=== PATIENT | male | born 1975 | race African-American/Black ===

== ENCOUNTER → 2016-08-21 | Outpatient (CLI) | payer OTHER ==
--- NOTE | 2016-08-21 10:42 | REP ---
Chest two views HISTORY: Left rib pain Comparison: None Linear density is present in the left lower lobe consistent with atelectasis or scar. The right lung is clear. The heart is normal in size. The pulmonary vasculature is normal in appearance. The bony structure is intact. IMPRESSION: Left lower lobe atelectasis or scar. Signed by Alex Gerber MD 08/21/2016 10:33 A
--- NOTE | 2016-08-21 10:51 | REP ---
Left wrist series: Four views. History: Pain in the left wrist. Findings: Four views of the left wrist demonstrate normal bones, joints, and soft tissues. Impression: Negative left wrist series. Signed by Bud Richardson MD 08/21/2016 10:43 A
--- NOTE | 2016-08-21 12:04 | REP ---
LUMBAR SPINE, FIVE VIEWS: HISTORY: Back pain. There is no acute fracture or subluxation. The L4-5 intervertebral disc is decreased in height consistent with disc degeneration. There is narrowing of the L5-S1 facet joints. A defect is present in the left iliac bone. Multiple small metallic foreign bodies are present in the left iliac bone. IMPRESSION: Degenerative change as described above. Signed by Alex Gerber MD 08/21/2016 12:05 P
--- NOTE | 2016-08-21 12:10 | REP ---
LEFT HAND SERIES: Four views. HISTORY: Pain in the left wrist. FINDINGS: Four views of the left hand demonstrate overall normal mineralization. Bones, joints, and soft tissues are radiographically unremarkable. IMPRESSION: Negative left hand series. Signed by Bud Richardson MD 08/21/2016 04:45 P
--- NOTE | 2016-08-21 12:17 | REP ---
LEFT RIB SERIES: Four views. FINDINGS: There is some discoid atelectasis in the left base anteriorly. There is a calcification from the costal cartilage position somewhat eccentrically adjacent to the anterolateral end of the left 11th rib. This does not have an acute appearance but may reflect old trauma. This should be correlated with area of tenderness and pain if there is a history of trauma. No bony destructive lesion is seen. No other evidence of rib fracture. IMPRESSION: Eccentrically position costal cartilage calcification adjacent to the anterolateral aspect of the left 10th and 11th ribs question old injury. Otherwise negative left rib series. Signed by Bud Richardson MD 08/21/2016 04:45 P
--- NOTE | 2016-08-21 12:31 | REP ---
THORACIC SPINE, THREE VIEWS: HISTORY: Back pain. There is no acute fracture or subluxation. The intervertebral discs are normal in height. IMPRESSION: There is no acute fracture or subluxation. Signed by Alex Gerber MD 08/21/2016 12:35 P
== END ==
LOC: M RAD 09:16
PROVIDERS: ATTEND Surgery
DX: R07.81 Pleurodynia (principal); M54.5 Low back pain; M54.6 Pain in thoracic spine; M25.532 Pain in left wrist; M51.36 Other intervertebral disc degeneration, lumbar region

== ENCOUNTER → 2016-09-18 | Outpatient (CLI) | payer OTHER ==
--- NOTE | 2016-09-18 09:36 | REP ---
LUMBAR SPINE, FIVE VIEWS: HISTORY: Left radiculopathy. COMPARISON: 08/21/2016. There is no acute fracture or subluxation. The L4-5 intervertebral disc is decreased in height consistent with disc degeneration. There is narrowing of the L5-S1 facet joints. A defect is present in the left iliac bone. Multiple small metallic foreign bodies are present in the left iliac bone. IMPRESSION: Degenerative change as described above. Signed by Alex Gerber MD 09/18/2016 10:00 A
== END ==
LOC: M RAD 08:41
PROVIDERS: ATTEND Surgery
DX: M51.36 Other intervertebral disc degeneration, lumbar region (principal)